=== PATIENT | male | born 1985 | race Caucasian/White ===

== ENCOUNTER 2018-05-29 16:11 | Inpatient (IN) | payer OTHER ==
[~2018-05-29] VITALS: Ht 182.9 cm; Wt 119.3 kg
[2018-05-29 16:16] VITALS: BP 119/69
[2018-05-29 17:15] LABS: APPEARANCE,URINE CLEAR (CLEAR); BILIRUBIN,URINE NEGATIVE (NEGATIVE); BLOOD, URINE 2+ (NEGATIVE); COLOR,URINE YELLOW (YELLOW); LEUKOCYTE ESTERASE ,URINE NEGATIVE (NEGATIVE); NITRITE, URINE NEGATIVE (NEGATIVE); PH,URINE 6.5 (5.0-9.0); UGLUCOSE NEGATIVE (NEGATIVE)
[2018-05-29 17:17] LABS: BASOPHILS % (AUTO) 0.1 % (0.0-2.0); EOSINOPHILS % (AUTO) 0.1 % (0.0-4.0); HEMATOCRIT 54.5 % (36-52); HEMOGLOBIN 18.4 g/dL (12.0-18.0); LYMPHOCYTES # (AUTO) 0.6 K/uL (2.0-11.5); LYMPHOCYTES % (AUTO) 3.5 % (20.5-51.1); MEAN CORPUSCULAR HEMOGLOBIN 34 pg (27-31); MEAN CORPUSCULAR HGB CONC 34 g/dL (33-37); MEAN CORPUSCULAR VOLUME 101.7 fL (80-94); MONOCYTES # (AUTO) 0.6 K/uL (0.8-1.0); MONOCYTES % (AUTO) 3.3 % (1.7-9.3); NEUTROPHILS # (AUTO) 15.9 K/uL (1.8-7.7); PLATELET COUNT (AUTO) 236 K/uL (140-450); RED BLOOD CELL COUNT(AUTO) 5.36 MIL/uL (4.20-6.10); RED CELL DISTRIBUTION WIDTH 13.7 % (11.6-13.7)
[2018-05-29 17:28] LABS: RBC,URINE 3-10 (FEW) /HPF (0-5)
[2018-05-29 17:29] LABS: WBC,URINE 0-5 (RARE) /HPF (0-5)
[2018-05-29 17:34] LABS: ANION GAP 6.9 (8-16); CARBON DIOXIDE 29.6 mmol/L (21-32); CREATININE 1.3 mg/dL (0.7-1.3); POTASSIUM 4.5 mmol/L (3.5-5.1)
[2018-05-29 17:45] LABS: ALBUMIN 1.2 g/dL (3.4-5.0); TOTAL BILIRUBIN 0.2 mg/dL (0.0-1.0)
[2018-05-29 18:07] LABS: THYROID STIMULATING HORMONE 1.36 uIU/mL (0.34-3.74)
[2018-05-29] MEDS ORDERED: ACETAMINOPHEN 325 MG TAB PO PRN (19:15)
[2018-05-29 20:00] VITALS: BP 121/79
[2018-05-29] MEDS: IBUPROFEN 800 MG TAB PO PRN (22:35)
[2018-05-30] VITALS: BP 117/53
[2018-05-30 04:00] VITALS: BP 114/50
[2018-05-30 06:52] LABS: BASOPHILS # (AUTO) 0.1 K/uL (0.00-0.22); EOSINOPHILS # (AUTO) 0.1 K/uL (0-0.4); EOSINOPHILS % (AUTO) 0.4 % (0.0-4.0); MONOCYTES # (AUTO) 1.2 K/uL (0.8-1.0)
[2018-05-30 07:14] LABS: BASOPHILS % (AUTO) 0.4 % (0.0-2.0); HEMATOCRIT 49.5 % (36-52); HEMOGLOBIN 16.7 g/dL (12.0-18.0); LYMPHOCYTES # (AUTO) 2.1 K/uL (2.0-11.5); LYMPHOCYTES % (AUTO) 15.1 % (20.5-51.1); MEAN CORPUSCULAR HEMOGLOBIN 34 pg (27-31); MEAN CORPUSCULAR HGB CONC 34 g/dL (33-37); MONOCYTES % (AUTO) 8.4 % (1.7-9.3); NEUTROPHILS # (AUTO) 10.5 K/uL (1.8-7.7); NEUTROPHILS % (AUTO) 75.7 % (42.2-75.2); PLATELET COUNT (AUTO) 181 K/uL (140-450); RED BLOOD CELL COUNT(AUTO) 4.86 MIL/uL (4.20-6.10); RED CELL DISTRIBUTION WIDTH 13.5 % (11.6-13.7); WHITE BLOOD COUNT (AUTO) 13.9 K/uL (4.8-10.8)
[2018-05-30 07:41] LABS: ALBUMIN 1.1 g/dL (3.4-5.0); ANION GAP 5.3 (8-16); CARBON DIOXIDE 33.1 mmol/L (21-32); CREATININE 1.2 mg/dL (0.7-1.3); MAGNESIUM 2.2 mg/dL (1.8-2.4); POTASSIUM 4.4 mmol/L (3.5-5.1); TOTAL BILIRUBIN 0.3 mg/dL (0.0-1.0)
[2018-05-30 07:47] LABS: CHOL/HDL RATIO 5.3 (1-4.5)
[2018-05-30 08:00] VITALS: BP 112/46
[2018-05-30] MEDS: NICOTINE TRANSD SYS 21 MG/24 HR PATCH TD SCH (10:14)
[2018-05-30] MEDS: FUROSEMIDE 40 MG/4 ML VIAL IVP SCH ×2 (10:15→17:25)
[2018-05-30] MEDS: ENOXAPARIN 40 MG/0.4 ML SYR SUBQ SCH (10:16)
[2018-05-30 12:00] VITALS: BP 115/43
[2018-05-30] MEDS: IBUPROFEN 800 MG TAB PO PRN (13:53)
[2018-05-30 16:00] VITALS: BP 103/43
[2018-05-30 20:00] VITALS: BP 103/39
[2018-05-31] VITALS: BP 106/46
[2018-05-31 04:00] VITALS: BP 115/59
[2018-05-31 07:37] LABS: EOSINOPHILS # (AUTO) 0.1 K/uL (0-0.4); EOSINOPHILS % (AUTO) 1.5 % (0.0-4.0); LYMPHOCYTES # (AUTO) 2.3 K/uL (2.0-11.5); LYMPHOCYTES % (AUTO) 32.7 % (20.5-51.1); MEAN CORPUSCULAR HEMOGLOBIN 35 pg (27-31); MEAN CORPUSCULAR HGB CONC 34 g/dL (33-37); MEAN CORPUSCULAR VOLUME 102.2 fL (80-94); MONOCYTES # (AUTO) 0.9 K/uL (0.8-1.0); MONOCYTES % (AUTO) 12.8 % (1.7-9.3); NEUTROPHILS # (AUTO) 3.8 K/uL (1.8-7.7); PLATELET COUNT (AUTO) 158 K/uL (140-450); RED BLOOD CELL COUNT(AUTO) 4.89 MIL/uL (4.20-6.10); RED CELL DISTRIBUTION WIDTH 13.5 % (11.6-13.7); WHITE BLOOD COUNT (AUTO) 7.2 K/uL (4.8-10.8)
[2018-05-31 07:48] LABS: ANION GAP 2.4 (8-16); CARBON DIOXIDE 34.6 mmol/L (21-32); CREATININE 1.2 mg/dL (0.7-1.3)
[2018-05-31 08:00] VITALS: BP 127/52
[2018-05-31] MEDS: NICOTINE TRANSD SYS 21 MG/24 HR PATCH TD SCH (08:37)
[2018-05-31] MEDS: FUROSEMIDE 40 MG/4 ML VIAL IVP SCH (08:38)
[2018-05-31] MEDS: ENOXAPARIN 40 MG/0.4 ML SYR SUBQ SCH (08:50)
[2018-05-31] MEDS ORDERED: ATORVASTATIN 20 MG TAB PO SCH (09:00)
[2018-05-31 12:00] VITALS: BP 105/66
[2018-05-31] MEDS ORDERED: ACET-1182 PO (13:41)
[2018-05-31] MEDS ORDERED: PRED10TA5 PO (13:41)
[2018-05-31] MEDS ORDERED: FURO-570 PO (13:41)
[2018-05-31] MEDS ORDERED: ATOR20TA PO (13:41)
[2018-05-31 16:00] VITALS: BP 127/43
[2018-05-31] MEDS ORDERED: predniSONE 20 MG TAB PO SCH (16:00)
[2018-05-31] MEDS ORDERED: FAMOTIDINE 20 MG TAB PO SCH (21:00)
[2018-06-01] MEDS ORDERED: predniSONE 20 MG TAB PO SCH (09:00)
== END 2018-05-31 16:15 | disposition home or self-care (01) | DRG 462 ==
LOC: MED 16:11 → MTU 19:04
PROVIDERS: ADMIT Hospitalist; ATTEND Hospitalist
DX: N04.0 Nephrotic syndrome with minor glomerular abnormality (principal); N17.9 Acute kidney failure, unspecified; D72.829 Elevated white blood cell count, unspecified; E66.9 Obesity, unspecified; E78.5 Hyperlipidemia, unspecified; E78.00 Pure hypercholesterolemia, unspecified; F17.210 Nicotine dependence, cigarettes, uncomplicated; N18.9 Chronic kidney disease, unspecified; E03.9 Hypothyroidism, unspecified; Z68.35 Body mass index [BMI] 35.0-35.9, adult; Z90.49 Acquired absence of other specified parts of digestive tract
CPT/HCPCS: 36415; 71045; 80048; 80053; 81001; 83735; 84443; 85025; 87081; 93005; 99285; J1650; J1940; J7512; Q0092